=== PATIENT | female | born 1960 | race Caucasian/White ===

== ENCOUNTER → 2017-01-06 | Outpatient (CLI) | payer BC ==
[~2017-01-06] MED LIST: ATR20T PO; BIEST TOP; BIEST/PROGESTERONE TOP; CYAN250T14 PO; DHEA TOP; ERGO400C PO; LEVO75TA6 PO; OMEG1CAP51 PO; PNT40TEC PO; TESTOST TOP; VITA400T9 PO
--- OUTSIDE RECORDS SUMMARY | 2017-01-06 07:15 | XMS REPORT | Continuity of Care Document ---
Author Author [facility] Organization [facility] Address Unknown Phone Unavailable Allergies Active Description Code Type Severity Reaction Onset Reported/Identified Relationship to Patient Clinical Status Yes No Known Drug Allergies [id number] Drug Allergy Unknown N/ A 06/09/2013 Medications Problems Date Dx Coded Attending Type Code Diagnosis Diagnosed By 06/10/2013 NEVILLE GRIER DO S Ot 244.9 HYPOTHYROIDISM NOS 06/10/2013 JENNIFERNDGOLDIE RIBEIRO DOQUELINE S Ot 272.4 HYPERLIPIDEMIA NEC/NOS 06/10/2013 JENNIFERNDGOLDIE RIBEIRO DOQUELINE S Ot 401.9 HYPERTENSION NOS 06/10/2013 JENNIFERNDGEMA DOGOLDIENEVILLE S Ot 530.81 ESOPHAGEAL REFLUX 06/10/2013 GOLDIE GRIER DOQUELINE S Ot 786.59 CHEST PAIN NEC 06/10/2013 GOLDIE GRIER DOQUELINE S Ot 794.31 ABNORM ELECTROCARDIOGRAM 03/18/2015 GOLDIE GRIER DOQUELINE S Ot V76.12 10/25/2015 Ot V76.12 10/25/2015 AURORA MONTES Ot V76.12 10/25/2015 GOLDIE GRIER DOQUELINE S Ot V76.12 04/30/2016 Ot V76.12 OTH SCREEN MAMMO-MALIGN NEOPLASM OF MICHELLE 04/30/2016 AURORA MONTES Ot V76.12 OTH SCREEN MAMMO-MALIGN NEOPLASM OF MICHELLE 04/30/2016 JACQUES GRIER DOLINE S Ot V76.12 OTH SCREEN MAMMO-MALIGN NEOPLASM OF MICHELLE Procedures Results Encounters ACCT No. Visit Date/Time Discharge Status Pt. Type Provider Facility Loc./Unit Complaint [id number] 02/16/2015 07:18:00 2014 23:59:59 CLS Outpatient NEVILLE GRIER DO S [facility] RAD [id number] 01/21/2014 07:43:00 2013 23:59:59 CLS Outpatient AURORA MONTES [facility] RAD [id number] 06/09/2013 11:52:00 2012 18:45:00 DIS Inpatient NEVILLE GRIER DO [facility] [id number] 10/25/2015 13:07:00 Document Registration [id number] 12/27/2010 07:19:00 Document Registration
--- NOTE | 2017-01-06 14:16 | Diagnostic Imaging Report ---
EXAMINATION: Bilateral screening mammogram with a Computer Aided Detection (CAD) system. INDICATION: Screening. PERSONAL HISTORY: No current complaints stated on the questionnaire. COMPARISON: 02/16/2015. FINDINGS: The breasts are composed of scattered fibroglandular densities. There are occasional benign appearing calcifications. Allowing for technique and positional differences, no suspicious change is seen. IMPRESSION: No significant change. ACR BI-RADS Category 2: Benign findings. Result letter will be mailed to the patient. Note: At least 10% of breast cancer is not imaged by mammography. Dictated by: Dictated on workstation # [id number]
== END ==
LOC: RAD 07:11
PROVIDERS: ATTEND Family Medicine
DX: Z12.31 Encounter for screening mammogram for malignant neoplasm of breast (principal)
CPT/HCPCS: 77067

== ENCOUNTER → 2017-12-18 | Outpatient (CLI) | payer BC ==
--- NOTE | 2017-12-18 19:16 | Diagnostic Imaging Report ---
INDICATION: Routine screening. The current study was also evaluated with a Computer Aided Detection (CAD) system. Comparison is made with prior studies from 01/06/2017 and 02/16/2015. FINDINGS: Both breasts are primarily involutional. No dominant mass or malignant-appearing microcalcifications are seen. Occasional benign-appearing calcifications are noted bilaterally. The axillae are unremarkable. IMPRESSION: No mammographic features suspicious for malignancy are identified. ACR BI-RADS Category 2: Benign findings. Result letter will be mailed to the patient. Note: At least 10% of breast cancer is not imaged by mammography. Dictated by: Dictated on workstation # [id number]
== END ==
LOC: RAD 07:25
PROVIDERS: ATTEND Family Medicine
DX: Z12.31 Encounter for screening mammogram for malignant neoplasm of breast (principal)
CPT/HCPCS: 77067

== ENCOUNTER → 2019-01-12 | Outpatient (CLI) | payer BC ==
--- NOTE | 2019-01-12 18:07 | Diagnostic Imaging Report ---
INDICATION: Routine screening. Comparison is made with prior mammograms from 12/18/2017 and 01/06/2017. 2-D and 3-D bilateral screening mammography was performed with Computer-Aided Detection (CAD) system. FINDINGS: Scattered fibroglandular densities are identified bilaterally. The parenchymal pattern is stable. There are benign calcifications bilaterally. No mass or malignant-appearing microcalcifications are seen. The axillae are unremarkable. IMPRESSION: No mammographic features suspicious for malignancy are identified. ACR BI-RADS Category 2: Benign findings. Result letter will be mailed to the patient. Note: At least 10% of breast cancer is not imaged by mammography. Dictated by: Dictated on workstation # [id number]
== END ==
LOC: RAD 07:20
PROVIDERS: ATTEND Family Medicine
DX: Z12.31 Encounter for screening mammogram for malignant neoplasm of breast (principal)
CPT/HCPCS: 77067

== ENCOUNTER → 2020-02-21 | Outpatient (CLI) | payer BC ==
--- NOTE | 2020-02-21 12:41 | Diagnostic Imaging Report ---
INDICATION: Screening. EXAMINATION: Digital screening with CAD. COMPARISON: 01/12/2019, 12/19/2017, and 01/06/2017. FINDINGS: The parenchymal pattern is predominantly fatty, unchanged. No dominant mass, spiculated lesion, architectural distortion, or suspicious calcifications. IMPRESSION: Stable negative mammogram. ACR BI-RADS Category 1: Negative. Result letter will be mailed to the patient. Note: At least 10% of breast cancer is not imaged by mammography. Dictated by: Dictated on workstation # [id number]
== END ==
LOC: RAD 07:56
PROVIDERS: ATTEND Nurse Practitioner Family
DX: Z12.31 Encounter for screening mammogram for malignant neoplasm of breast (principal)
CPT/HCPCS: 77063; 77067

== ENCOUNTER → 2021-11-02 | Outpatient (CLI) | payer BC ==
--- NOTE | 2021-11-02 10:03 | Diagnostic Imaging Report ---
INDICATION: Routine screening. COMPARISON is made with prior mammogram from 02/21/2020 and 01/12/2019. 2-D and 3-D bilateral screening mammography was performed with CAD. Scattered fibroglandular densities are identified bilaterally. No mass or malignant-appearing microcalcifications are seen. There are benign calcifications present. Axillae are unremarkable. IMPRESSION: BI-RADS Category 2 No mammographic features suspicious for malignancy are identified. ACR BI-RADS Category 2: Benign findings. Result letter will be mailed to the patient. Note: At least 10% of breast cancer is not imaged by mammography. Dictated by: Dictated on workstation # [id number]
== END ==
LOC: RAD 07:38
PROVIDERS: ATTEND Family Medicine
DX: Z12.31 Encounter for screening mammogram for malignant neoplasm of breast (principal)
CPT/HCPCS: 77063; 77067

== ENCOUNTER → 2022-11-05 | Outpatient (CLI) | payer BC ==
--- NOTE | 2022-11-05 15:27 | Diagnostic Imaging Report ---
INDICATION: Routine screening. COMPARISON: 11/02/2021 and 02/21/2020. TECHNIQUE: 2D and 3D bilateral screening mammography was performed with CAD. FINDINGS: Scattered fibroglandular densities are identified bilaterally. The parenchymal pattern is stable. No mass or malignant-appearing microcalcifications are seen. The axillae are unremarkable. IMPRESSION: No mammographic features suspicious for malignancy are identified. ACR BI-RADS Category 1: Negative. Result letter will be mailed to the patient. Note: At least 10% of breast cancer is not imaged by mammography. Dictated by: Dictated on workstation # [id number]
== END ==
LOC: RAD 10:45
DX: Z12.31 Encounter for screening mammogram for malignant neoplasm of breast (principal)
CPT/HCPCS: 77063; 77067